=== PATIENT | female | born 1955 | race Caucasian/White ===

== ENCOUNTER → 2020-01-09 | Outpatient (REF) | payer BC ==
[2020-01-09 11:54] LABS: BLOOD UREA NITROGEN 17 MG/DL (7-18); CALCIUM LEVEL 9.1 MG/DL (8.8-10.2); CARBON DIOXIDE LEVEL 28 MEQ/L (21-32); CHLORIDE LEVEL 107 MEQ/L (98-107); CREATININE FOR GFR 0.76 MG/DL (0.55-1.30); GLOMERULAR FILTRATION RATE > 60.0 (>45); GLUCOSE, FASTING 109 MG/DL (70-100); SODIUM LEVEL 140 MEQ/L (136-145)
[2020-01-09 19:38] LABS: HEMOGLOBIN A1c 6.7 %
== END ==
LOC: M SFHCCLAY 09:01
PROVIDERS: ATTEND Family Medicine
DX: E11.9 Type 2 diabetes mellitus without complications (principal); I10 Essential (primary) hypertension; E03.9 Hypothyroidism, unspecified

== ENCOUNTER → 2020-04-05 | Outpatient (REF) | payer BC ==
[2020-04-05 12:44] LABS: HEMATOCRIT 41.6 % (36.0-47.0); HEMOGLOBIN 14.1 g/dl (12.0-15.5); MEAN CORPUSCULAR HGB CONC 33.9 g/dl (32.0-36.5); MEAN CORPUSCULAR VOLUME 94.5 fl (80.0-96.0); PLATELET COUNT, AUTOMATED 234 10^3/uL (150-450); WHITE BLOOD COUNT 8.6 10^3/uL (4.0-10.0)
[2020-04-05 13:18] LABS: ALBUMIN 4.1 GM/DL (3.2-5.2); ALT/SGPT 50 U/L (12-78); BILIRUBIN,TOTAL 0.5 MG/DL (0.2-1.0); BLOOD UREA NITROGEN 18 MG/DL (7-18); CALCIUM LEVEL 8.8 MG/DL (8.8-10.2); CARBON DIOXIDE LEVEL 29 MEQ/L (21-32); CHLORIDE LEVEL 106 MEQ/L (98-107); CHOLESTEROL LEVEL 205 MG/DL (<200); CHOLESTEROL RISK RATIO 3.727 (<5); CREATININE FOR GFR 0.78 MG/DL (0.55-1.30); FREE T4 1.16 NG/DL (0.76-1.46); GLOMERULAR FILTRATION RATE > 60.0 (>45); GLUCOSE, FASTING 125 MG/DL (70-100); HDL CHOLESTEROL 55 MG/DL (>40); LDL CHOLESTEROL 121 MG/DL (<100); NON-HDL-C 150 MG/DL; POTASSIUM SERUM 4.1 MEQ/L (3.5-5.1); SODIUM LEVEL 141 MEQ/L (136-145); THYROID STIMULATING HORMONE 0.995 uIU/ML (0.358-3.740); TOTAL PROTEIN 6.9 GM/DL (6.4-8.2); TRIGLYCERIDES LEVEL 145 MG/DL (<150)
[2020-04-05 13:34] LABS: MALB URINE SIEMENS 7.2 MG/L; MAU/CREAT RATIO 6.8 MCG/MG (0.0-30.0)
[2020-04-05 13:52] LABS: HEMOGLOBIN A1c 5.7 %
== END ==
LOC: M SFHCCLAY 07:56
PROVIDERS: ATTEND Family Medicine
DX: I10 Essential (primary) hypertension (principal); E03.9 Hypothyroidism, unspecified; E11.9 Type 2 diabetes mellitus without complications; G47.33 Obstructive sleep apnea (adult) (pediatric)

== ENCOUNTER → 2020-11-13 | Outpatient (REF) | payer BC ==
[2020-11-13 11:15] LABS: HEMATOCRIT 41.9 % (36.0-47.0); MEAN CORPUSCULAR HEMOGLOBIN 31.7 pg (27.0-33.0); MEAN CORPUSCULAR HGB CONC 33.4 g/dl (32.0-36.5); MEAN CORPUSCULAR VOLUME 94.8 fl (80.0-96.0); PLATELET COUNT, AUTOMATED 236 10^3/uL (150-450); RED BLOOD COUNT 4.42 10^6/uL (4.00-5.40); WHITE BLOOD COUNT 8.3 10^3/uL (4.0-10.0)
[2020-11-13 11:40] LABS: HEMOGLOBIN A1c 5.6 %
[2020-11-13 11:48] LABS: ALBUMIN 4.1 GM/DL (3.2-5.2); ALT/SGPT 28 U/L (12-78); BILIRUBIN,TOTAL 0.4 MG/DL (0.2-1.0); BLOOD UREA NITROGEN 14 MG/DL (7-18); CALCIUM LEVEL 9.1 MG/DL (8.8-10.2); CARBON DIOXIDE LEVEL 32 MEQ/L (21-32); CHLORIDE LEVEL 104 MEQ/L (98-107); CHOLESTEROL LEVEL 218 MG/DL (<200); CHOLESTEROL RISK RATIO 4.274 (<5); CREATININE FOR GFR 0.64 MG/DL (0.55-1.30); FREE T4 1.04 NG/DL (0.76-1.46); GLOMERULAR FILTRATION RATE > 60.0 (>45); GLUCOSE, FASTING 114 MG/DL (70-100); HDL CHOLESTEROL 51 MG/DL (>40); LDL CHOLESTEROL 120 MG/DL (<100); NON-HDL-C 167 MG/DL; POTASSIUM SERUM 4.1 MEQ/L (3.5-5.1); SODIUM LEVEL 140 MEQ/L (136-145); THYROID STIMULATING HORMONE 0.916 uIU/ML (0.358-3.740); TRIGLYCERIDES LEVEL 236 MG/DL (<150)
[2020-11-13 11:53] LABS: MALB URINE SIEMENS 5.6 MG/L; MAU/CREAT RATIO 4.5 MCG/MG (0.0-30.0)
== END ==
LOC: M SFHCCLAY 07:57
PROVIDERS: ATTEND Family Medicine
DX: G47.33 Obstructive sleep apnea (adult) (pediatric) (principal); I10 Essential (primary) hypertension; E03.9 Hypothyroidism, unspecified; E11.9 Type 2 diabetes mellitus without complications

== ENCOUNTER → 2021-01-29 | Outpatient (REF) | payer BC ==
[2021-01-30 12:12] LABS: BASO % 0.7 % (0.0-1.0); EOS # 0.4 10^3/uL (0.0-0.5); EOS % 3.7 % (0.0-3.0); HEMATOCRIT 42.2 % (36.0-47.0); HEMOGLOBIN 14.1 g/dl (12.0-15.5); LYMPH % 31.3 % (24.0-44.0); MEAN CORPUSCULAR HEMOGLOBIN 31.6 pg (27.0-33.0); MEAN CORPUSCULAR HGB CONC 33.4 g/dl (32.0-36.5); MEAN CORPUSCULAR VOLUME 94.6 fl (80.0-96.0); MONO # 0.6 10^3/uL (0.0-0.8); MONO % 6.5 % (2.0-8.0); NEUTROPHILS # 5.4 10^3/uL (1.5-8.5); NEUTROPHILS % 57.1 % (36.0-66.0); PLATELET COUNT, AUTOMATED 216 10^3/uL (150-450); RED BLOOD COUNT 4.46 10^6/uL (4.00-5.40); WHITE BLOOD COUNT 9.5 10^3/uL (4.0-10.0)
[2021-01-30 12:13] LABS: BASO # 0.1 10^3/uL (0.0-0.2)
[2021-01-30 12:52] LABS: ALBUMIN 4.2 GM/DL (3.2-5.2); ALT/SGPT 33 U/L (12-78); BILIRUBIN,TOTAL 0.4 MG/DL (0.2-1.0); BLOOD UREA NITROGEN 15 MG/DL (7-18); CALCIUM LEVEL 9.3 MG/DL (8.8-10.2); CARBON DIOXIDE LEVEL 31 MEQ/L (21-32); CHLORIDE LEVEL 101 MEQ/L (98-107); CREATININE FOR GFR 0.97 MG/DL (0.55-1.30); GLOMERULAR FILTRATION RATE > 60.0 (>45); GLUCOSE, FASTING 130 MG/DL (70-100); POTASSIUM SERUM 4.5 MEQ/L (3.5-5.1); SODIUM LEVEL 139 MEQ/L (136-145); TOTAL PROTEIN 7.1 GM/DL (6.4-8.2)
== END ==
LOC: M SFHCLERA 11:37
PROVIDERS: ATTEND Nurse Practitioner Family
DX: R10.32 Left lower quadrant pain (principal)

== ENCOUNTER → 2021-01-29 | Outpatient (REF) | payer BC ==
[2021-01-30 14:02] LABS: CHOLESTEROL RISK RATIO 5.163 (<5)
== END ==
LOC: M SFHCCLAY 14:00
PROVIDERS: ATTEND Family Medicine
DX: E78.2 Mixed hyperlipidemia (principal)

== ENCOUNTER → 2021-01-30 | Outpatient (CLI) | payer BC ==
[~2021-01-30] MED LIST: GASTROGRAFIN SOLUTION 30ML (Q9963) As Ordered ONE; ISOVUE-370 76% 100ML VIAL As Ordered ONE
--- NOTE | 2021-01-30 11:10 | REP ---
INDICATION: LLQ PAIN. COMPARISON: None. TECHNIQUE: Helical scanning is acquired and 3 mm axial images re-formatted. Coronal and sagittal MPR images are generated. The CT contrast enhancement dose is 100 mL of intravenous Isovue 370. FINDINGS: Preliminary digital medical transport specialist radiograph is unremarkable. Normal bowel gas pattern is seen. The lung bases are clear on axial CT images except for a small zone linear fibrosis on the left. There is mild diffuse fatty infiltration of the liver. No significant focal liver lesion is seen. The liver is borderline in size. The gallbladder is unremarkable. The spleen is normal in size homogeneous in texture. No adrenal lesion is seen. No abnormality is noted in the pancreas. The kidneys enhance symmetrically and are morphologically intact. No retroperitoneal mass or adenopathy is observed. Urinary bladder is unremarkable. No pelvic mass or adenopathy is seen. The uterus is surgically absent. 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 Small and large bowel loops are unremarkable in the abdomen and pelvis. There is no evidence of diverticulitis or diverticulosis. No abdominal wall defect or bony destructive lesion is appreciated. IMPRESSION: No acute abdominal or pelvic abnormality. Minimal diffuse fatty infiltration of the liver. Vascular calcification. Otherwise negative. Prior hysterectomy and appendectomy. <Electronically signed by Dru Orona > 01/30/21 [id number]
== END ==
LOC: M RAD 08:52
PROVIDERS: ATTEND Nurse Practitioner Family
DX: R10.32 Left lower quadrant pain (principal)
CPT/HCPCS: 74177; Q9963; Q9967

== ENCOUNTER → 2021-04-01 | Outpatient (REF) | payer BC | LOC: M SFHCCLAY 07:26 | PROVIDERS: ATTEND Family Medicine | DX: E78.2 Mixed hyperlipidemia (principal) ==